=== PATIENT | male | born 1990 | race Caucasian/White ===

== ENCOUNTER 2023-06-16 11:24 | Emergency (ER) | payer OTHER ==
[2023-06-16 11:29] VITALS: BP 111/64; PULSE 79; RESP 20; TEMP 97.8; BMI 30.7
== END 2023-06-16 14:51 | disposition left against medical advice (07) ==
LOC: JER 11:24
DX: R10.9 Unspecified abdominal pain (principal)
CPT/HCPCS: 99281-25